=== PATIENT | female | born 1985 | race Caucasian/White ===

== ENCOUNTER 2017-09-23 12:01 | Outpatient (CLI) | payer BC ==
[~2017-09-23] VITALS: Ht 160 cm; Wt 107.7 kg
[2017-09-23 13:48] LABS: MICROSCOPIC NOT IND
== END 2017-09-23 14:54 | disposition home or self-care (01) ==
LOC: LDOP 12:01
PROVIDERS: ATTEND Obstetrics & Gynecology Maternal & Fetal Medicine
DX: O26.893 Other specified pregnancy related conditions, third trimester (principal); R51 Headache; Z3A.36 36 weeks gestation of pregnancy
CPT/HCPCS: 59025; 81003; 87086; 99201; G0463

== ENCOUNTER 2017-10-02 13:57 | Inpatient (IN) | payer BC ==
[~2017-10-02] VITALS: Ht 160 cm; Wt 110.9 kg
[2017-10-02 14:23] VITALS: BP 127/67
[2017-10-02] MEDS ORDERED: CALC-192 PO (14:58)
[2017-10-02] MEDS ORDERED: CALC200T3 PO (14:58)
[2017-10-02] MEDS ORDERED: PREN1TAB60 PO (14:58)
[2017-10-02 15:14] LABS: BASOPHILS # (AUTO) 0.03 x10^3/uL (0-0.1); BASOPHILS % (AUTO) 1 % (0-1); EOSINOPHILS # (AUTO) 0.07 x10^3/uL (0-0.4); EOSINOPHILS % (AUTO) 1 % (1-7); LYMPHOCYTES # (AUTO) 1.62 x10^3/uL (1-3.4); LYMPHOCYTES % (AUTO) 22 % (22-44); MD NO; MEAN CORPUSCULAR HGB CONC 33.6 g/dL (32.4-35.8); MEAN CORPUSCULAR VOLUME 83.4 fL (80-100); MEAN PLATELET VOLUME 9.3 fL (7.4-10.4); MONOCYTES # (AUTO) 0.58 x10^3/uL (0.2-0.8); MONOCYTES % (AUTO) 8 % (2-9); NEUTROPHILS # (AUTO) 5.09 x10^3/uL (1.8-6.8); NEUTROPHILS % (AUTO) 69 % (42-75); PLATELET COUNT 213 x10^3/uL (130-400); RED BLOOD COUNT 4.48 x10^6/uL (3.82-5.3); RED CELL DISTRIBUTION WIDTH 14.9 % (9.6-15.2)
[2017-10-02 15:16] LABS: MICROSCOPIC INDICATED
[2017-10-02 15:22] LABS: ALANINE AMINOTRANSFERASE 14 U/L (12-78); ALBUMIN 2.4 g/dL (3.4-5.0); ANION GAP 7 mmol/L (5-15); CALCIUM 8.8 mg/dL (8.5-10.1); CHLORIDE 108 mmol/L (98-107); CREATININE 0.55 mg/dL (0.55-1.02)
[2017-10-02 15:24] LABS: ALKALINE PHOSPHATASE 203 U/L (45-117); BILIRUBIN,TOTAL 0.3 mg/dL (0.2-1.0); TOTAL PROTEIN 6.5 g/dL (6.4-8.2)
[2017-10-02] MEDS ORDERED: OXYcodone/APAP 5/325MG TABLET PO ONE (16:30)
[2017-10-02] MEDS ORDERED: OXYcodone/APAP 5/325MG TABLET ONE (16:41)
[2017-10-02] MEDS ORDERED: D5%-LACTATED RINGERS 1,000 ML IV SCH (18:03)
[2017-10-02] MEDS ORDERED: OXYTOCIN 30U/ 0.9% NaCL 500ML 500 ML IV ONE (18:03)
[2017-10-02] MEDS ORDERED: OXYTOCIN 30U/ 0.9% NaCL 500ML 500 ML IV PRN (18:03)
[2017-10-02] MEDS ORDERED: ONDANSETRON 2MG/ML, 2ML IVPush PRN (18:30)
[2017-10-02] MEDS ORDERED: FENTANYL PF 100 MCG/2ML IVPush PRN (18:30)
[2017-10-02] MEDS ORDERED: MISOPROSTOL 25 MCG TABLET VG PRN (18:30)
[2017-10-02] MEDS ORDERED: FENTANYL PF 100 MCG/2ML IV PRN (18:30)
[2017-10-02] MEDS ORDERED: CALCIUM CARBONATE 500 MG TAB.CHEW PO PRN (18:30)
[2017-10-02 18:31] VITALS: BP 127/64
[2017-10-02] MEDS ORDERED: NEWBORN KIT ONE (19:21)
[2017-10-02] MEDS ORDERED: MISOPROSTOL 25 MCG TABLET ONE (19:50)
[2017-10-03 00:51] VITALS: BP 128/82
[2017-10-03] MEDS: LACTATED RINGERS 1,000 ML IV SCH ×2 (02:02→08:47)
[2017-10-03] MEDS ORDERED: LIDOCAINE/PF 1%, 30ML ONE (02:15)
[2017-10-03] MEDS ORDERED: MISOPROSTOL 200 MCG TABLET ONE (02:15)
[2017-10-03] MEDS ORDERED: OXYTOCIN 30U/ 0.9% NaCL 500ML 500 ML ONE ×2 (02:15→12:59)
[2017-10-03] MEDS ORDERED: LACTATED RINGERS 1,000 ML IV SCH ×2 (03:49→09:45)
[2017-10-03] MEDS ORDERED: FENTANYL/BUPIV./NS/PF 250 ML EPIDCONT SCH ×2 (03:49→09:45)
[2017-10-03] MEDS ORDERED: LACTATED RINGERS 1,000 ML IVBOLUS PRN ×2 (04:00→10:00)
[2017-10-03] MEDS ORDERED: BUPIVACAINE 0.25% ONE (07:19)
[2017-10-03] MEDS ORDERED: LACTATED RINGERS 1,000 ML INTUTE ONE (08:30)
[2017-10-03] MEDS ORDERED: TERBUTALINE 1 MG/ML, 1ML ONE (08:39)
[2017-10-03] MEDS ORDERED: TERBUTALINE 1 MG/ML, 1ML IVPush PRN (09:00)
[2017-10-03] MEDS ORDERED: EPHEDRINE 50 MG/ML, 1ML IVPush PRN (10:00)
[2017-10-03] MEDS ORDERED: OXYcodone IR 5MG TABLET PO PRN (11:00)
[2017-10-03] MEDS ORDERED: ONDANSETRON 2MG/ML, 2ML IV PRN (11:00)
[2017-10-03] MEDS: PRENATAL VIT/IRON/FA 1 EACH TABLET PO SCH (11:00)
[2017-10-03] MEDS ORDERED: MISOPROSTOL 200 MCG TABLET PR PRN (11:00)
[2017-10-03] MEDS: OXYTOCIN 30U/ 0.9% NaCL 500ML 500 ML IV SCH ×2 (13:01→20:56)
[2017-10-03 14:22] VITALS: BP 118/74
[2017-10-03 16:49] LABS: MEAN CORPUSCULAR HEMOGLOBIN 27.8 pg (27.0-34.8); MEAN CORPUSCULAR HGB CONC 32.8 g/dL (32.4-35.8); MEAN CORPUSCULAR VOLUME 84.5 fL (80-100); MEAN PLATELET VOLUME 9.3 fL (7.4-10.4); PLATELET COUNT 186 x10^3/uL (130-400); RED BLOOD COUNT 4.24 x10^6/uL (3.82-5.3); RED CELL DISTRIBUTION WIDTH 14.5 % (9.6-15.2)
[2017-10-03 17:24] LABS: MD SCAN
[2017-10-03 17:25] LABS: BASOPHILS # (AUTO) 0.08 x10^3/uL (0-0.1); BASOPHILS % (AUTO) 1 % (0-1); EOSINOPHILS # (AUTO) 0.02 x10^3/uL (0-0.4); EOSINOPHILS % (AUTO) 0 % (1-7); LYMPHOCYTES # (AUTO) 1.86 x10^3/uL (1-3.4); LYMPHOCYTES % (AUTO) 14 % (22-44); MONOCYTES # (AUTO) 0.89 x10^3/uL (0.2-0.8); MONOCYTES % (AUTO) 7 % (2-9); NEUTROPHILS # (AUTO) 10.32 x10^3/uL (1.8-6.8); NEUTROPHILS % (AUTO) 78 % (42-75)
[2017-10-03 21:00] VITALS: BP 125/76
[2017-10-04 01:00] VITALS: BP 121/83
[2017-10-04] MEDS: OXYcodone/APAP 5/325MG TABLET PO PRN ×4 (04:06→23:16)
[2017-10-04 04:54] VITALS: BP 120/79
[2017-10-04 07:20] VITALS: BP 119/82
[2017-10-04] MEDS: IBUPROFEN 600 MG TABLET PO PRN ×2 (09:09→17:56)
[2017-10-04] MEDS: PRENATAL VIT/IRON/FA 1 EACH TABLET PO SCH (09:09)
[2017-10-04] MEDS: DOCUSATE 100 MG CAPSULE PO PRN ×2 (09:09→23:16)
[2017-10-04] MEDS ORDERED: DIPH,PERTUSS(ACELL),TET VAC/PF NC IM-VACC ONE ×2 (17:51→17:52)
[2017-10-04 20:55] VITALS: BP 124/78
[2017-10-05] MEDS: IBUPROFEN 600 MG TABLET PO PRN ×3 (04:07→15:33)
[2017-10-05] MEDS: OXYcodone/APAP 5/325MG TABLET PO PRN ×3 (04:07→15:33)
[2017-10-05] MEDS: PRENATAL VIT/IRON/FA 1 EACH TABLET PO SCH (09:30)
[2017-10-05] MEDS: DOCUSATE 100 MG CAPSULE PO PRN (09:30)
[2017-10-05 09:45] VITALS: BP 137/84
[2017-10-05] MEDS ORDERED: OXYC-302 PO (13:32)
[2017-10-05] MEDS ORDERED: IBUP-1222 PO (13:32)
[2017-10-05] MEDS ORDERED: DOCU-131 PO (13:33)
[2017-10-05 19:18] VITALS: BP 117/80
== END 2017-10-05 18:36 | disposition home or self-care (01) | DRG 775 ==
LOC: LDOP 13:57 → OBSVTOIN 16:21 → LDIP 16:21 → 2NW 10-03 13:55
PROVIDERS: ADMIT Obstetrics & Gynecology Maternal & Fetal Medicine; ATTEND Obstetrics & Gynecology Maternal & Fetal Medicine
PROC: 10E0XZZ Delivery of Products of Conception, External Approach (ICD-10-PCS; principal; 2017-10-03)
PROC: 3E0R3BZ Introduction of Anesthetic Agent into Spinal Canal, Percutaneous Approach (ICD-10-PCS; 2017-10-03)
PROC: 00HU33Z Insertion of Infusion Device into Spinal Canal, Percutaneous Approach (ICD-10-PCS; 2017-10-03)
PROC: 10907ZC Drainage of Amniotic Fluid, Therapeutic from Products of Conception, Via Natural or Artificial Opening (ICD-10-PCS; 2017-10-03)
DX: O14.04 Mild to moderate pre-eclampsia, complicating childbirth (principal); O66.0 Obstructed labor due to shoulder dystocia; O71.7 Obstetric hematoma of pelvis; O76 Abnormality in fetal heart rate and rhythm complicating labor and delivery; Z3A.38 38 weeks gestation of pregnancy; O69.1XX0 Labor and delivery complicated by cord around neck, with compression, not applicable or unspecified; Z37.0 Single live birth
CPT/HCPCS: 36415; 76819; 80053; 81001; 82570; 82803; 83615; 84156; 84550; 85025; 86850; 86900; 87086; J3490; J2590; J3010; J3105; J7120

== ENCOUNTER 2017-11-26 23:13 | Emergency (ER) | payer BC ==
[~2017-11-26] VITALS: Ht 157.5 cm; Wt 100.7 kg
[~2017-11-26 23:13] MED LIST: CALC-192 PO; CALC200T3 PO; DOCU-131 PO; IBUP-1222 PO; OXYC-302 PO; PREN1TAB60 PO
[2017-11-26] MEDS ORDERED: MAALOX/HYOSCYAMINE/LIDOCAINE 45 ML BTL ONE (23:52)
[2017-11-26 23:58] LABS: BASOPHILS # (AUTO) 0.03 x10^3/uL (0-0.1); BASOPHILS % (AUTO) 0 % (0-1); EOSINOPHILS # (AUTO) 0.16 x10^3/uL (0-0.4); EOSINOPHILS % (AUTO) 2 % (1-7); LYMPHOCYTES # (AUTO) 3.12 x10^3/uL (1-3.4); LYMPHOCYTES % (AUTO) 35 % (22-44); MD NO; MEAN CORPUSCULAR HEMOGLOBIN 27.4 pg (27.0-34.8); MEAN CORPUSCULAR HGB CONC 32.8 g/dL (32.4-35.8); MEAN CORPUSCULAR VOLUME 83.7 fL (80-100); MEAN PLATELET VOLUME 8.6 fL (7.4-10.4); MONOCYTES # (AUTO) 0.59 x10^3/uL (0.2-0.8); MONOCYTES % (AUTO) 7 % (2-9); NEUTROPHILS # (AUTO) 4.97 x10^3/uL (1.8-6.8); NEUTROPHILS % (AUTO) 56 % (42-75); PLATELET COUNT 254 x10^3/uL (130-400); RED BLOOD COUNT 4.57 x10^6/uL (3.82-5.3); RED CELL DISTRIBUTION WIDTH 15.9 % (9.6-15.2)
[2017-11-27] MEDS ORDERED: MAALOX/HYOSCYAMINE/LIDOCAINE 45 ML BTL PO ONE
[2017-11-27 00:12] LABS: ALANINE AMINOTRANSFERASE 29 U/L (12-78); ALBUMIN 3.6 g/dL (3.4-5.0); ANION GAP 9 mmol/L (5-15); CALCIUM 8.8 mg/dL (8.5-10.1); CHLORIDE 108 mmol/L (98-107); CREATININE 0.73 mg/dL (0.55-1.02)
[2017-11-27 00:13] LABS: CULTURE INDICATED? YES; MICROSCOPIC INDICATED
[2017-11-27 00:16] LABS: ALKALINE PHOSPHATASE 120 U/L (45-117); BILIRUBIN,TOTAL 0.2 mg/dL (0.2-1.0); TOTAL PROTEIN 7.3 g/dL (6.4-8.2)
[2017-11-27 04:07] VITALS: BP 110/72
== END 2017-11-27 04:09 | disposition home or self-care (01) ==
LOC: ED 11-27 01:29
DX: K80.20 Calculus of gallbladder without cholecystitis without obstruction (principal)
CPT/HCPCS: 36415; 76700; 80053; 81001; 83690; 84703; 85025; 87086; 99285

== ENCOUNTER → 2018-01-01 | Outpatient (CLI) | payer BC ==
[~2018-01-01] MED LIST changes: +AMOX1TAB12 PO
[2018-01-01 11:52] LABS: BASOPHILS # (AUTO) 0.03 x10^3/uL (0-0.1); BASOPHILS % (AUTO) 0 % (0-1); EOSINOPHILS # (AUTO) 0.16 x10^3/uL (0-0.4); EOSINOPHILS % (AUTO) 2 % (1-7); LYMPHOCYTES # (AUTO) 2.59 x10^3/uL (1-3.4); LYMPHOCYTES % (AUTO) 33 % (22-44); MD NO; MEAN CORPUSCULAR HEMOGLOBIN 27.8 pg (27.0-34.8); MEAN CORPUSCULAR VOLUME 84.5 fL (80-100); MEAN PLATELET VOLUME 9.1 fL (7.4-10.4); MONOCYTES # (AUTO) 0.53 x10^3/uL (0.2-0.8); MONOCYTES % (AUTO) 7 % (2-9); NEUTROPHILS # (AUTO) 4.66 x10^3/uL (1.8-6.8); NEUTROPHILS % (AUTO) 58 % (42-75); PLATELET COUNT 246 x10^3/uL (130-400); RED BLOOD COUNT 4.58 x10^6/uL (3.82-5.3); RED CELL DISTRIBUTION WIDTH 15.4 % (9.6-15.2)
[2018-01-01 11:59] LABS: CULTURE INDICATED? NO; MICROSCOPIC NOT IND
== END | disposition home or self-care (01) ==
LOC: STAR 10:50
PROVIDERS: ATTEND Colon & Rectal Surgery
DX: Z01.818 Encounter for other preprocedural examination (principal)
CPT/HCPCS: 36415; 81003; 84703; 85025

== ENCOUNTER 2018-01-08 06:32 | Day surgery (SDC) | payer BC ==
[2018-01-01 11:22] VITALS: BP 118/80
[~2018-01-08] VITALS: Ht 160 cm; Wt 95.6 kg
[2018-01-08] MEDS ORDERED: INDIGO CARMINE 0.8%, 5ML ONE (07:10)
[2018-01-08] MEDS ORDERED: BUPIVACAINE/PF 0.5% ONE (07:10)
[2018-01-08] MEDS ORDERED: EPINEPHRINE 1 MG/ML, 1ML ONE (07:10)
[2018-01-08] MEDS ORDERED: LACTATED RINGERS 1,000 ML IV SCH (07:21)
[2018-01-08] MEDS ORDERED: PROMETHAZINE 25 MG/ML, 1ML IV PRN (09:00)
[2018-01-08] MEDS ORDERED: METOCLOPRAMIDE 5 MG/ML, 2ML IV PRN (09:00)
[2018-01-08] MEDS ORDERED: hydrALAzine 20 MG/ML, 1ML IV PRN (09:00)
[2018-01-08] MEDS ORDERED: HYDROmorphone 1 MG/ML, 1ML IV PRN (09:00)
[2018-01-08] MEDS ORDERED: KETOROLAC 30 MG/1 ML IV PRN (09:00)
[2018-01-08] MEDS ORDERED: ALBUTEROL SULFATE 2.5 MG/3 ML NPPB PRN (09:00)
[2018-01-08] MEDS ORDERED: LABETALOL 5MG/ML, 20ML IV PRN (09:00)
[2018-01-08] MEDS ORDERED: ONDANSETRON 2MG/ML, 2ML IVPush PRN (09:00)
[2018-01-08] MEDS ORDERED: MEPERIDINE/PF 25MG/0.5ML IVPush PRN (09:00)
[2018-01-08] MEDS ORDERED: BUPIVACAINE/PF-EPI 0.5% 1:200K INFIL ONE (09:14)
[2018-01-08 09:15] LABS: HCG UR SG 1.014 (1.003-1.030)
[2018-01-08] MEDS ORDERED: FENTANYL PF 100 MCG/2ML ONE (09:54)
[2018-01-08] MEDS ORDERED: OXYcodone 5 MG/5 ML ORAL.SOL UDC ONE ×2 (09:54→10:19)
[2018-01-08] MEDS ORDERED: KETOROLAC 30 MG/1 ML ONE (09:54)
[2018-01-08] MEDS: FENTANYL PF 100 MCG/2ML IV PRN ×2 (09:59→10:20)
[2018-01-08] MEDS: OXYcodone 5 MG/5 ML ORAL.SOL UDC PO PRN ×2 (10:03→10:20)
[2018-01-08] MEDS ORDERED: NEOSTIGMINE 1 MG/ML, 10ML ONE (15:28)
[2018-01-08] MEDS ORDERED: SUCCINYLCHOLINE 20 MG/ML, 10ML ONE (15:28)
[2018-01-08] MEDS ORDERED: CEFAZOLIN 1,000 MG ONE (15:28)
[2018-01-08] MEDS ORDERED: PROPOFOL 10 MG/ML, 20ML ONE (15:28)
[2018-01-08] MEDS ORDERED: DEXAMETHASONE 4 MG/ML, 1ML ONE (15:28)
[2018-01-08] MEDS ORDERED: ROCURONIUM 10MG/ML,5ML ONE (15:28)
[2018-01-08] MEDS ORDERED: GLYCOPYRROLATE 0.2MG/1ML, 5ML ONE (15:28)
[2018-01-08] MEDS ORDERED: ONDANSETRON 2MG/ML, 2ML ONE (15:28)
== END 2018-01-08 14:15 | disposition home or self-care (01) ==
LOC: OUT 06:32
PROVIDERS: ATTEND Obstetrics & Gynecology Maternal & Fetal Medicine
DX: K80.10 Calculus of gallbladder with chronic cholecystitis without obstruction (principal); Z30.2 Encounter for sterilization
CPT/HCPCS: 47562; 58661; 81025; 88302; 88304; J0171; J0330; J0690; J1100; J1885; J2250; J2405; J2704; J2710; J3010; J3490; J7120

== ENCOUNTER 2020-11-07 11:24 | Emergency (ER) | payer BC ==
[~2020-11-07] VITALS: Ht 160 cm; Wt 106.2 kg
[~2020-11-07 11:24] MED LIST changes: -OXYC-302 PO; +OXYC1TAB12 PO
[2020-11-07 12:57] LABS: BASOPHILS % (AUTO) 1 % (0-1); EOSINOPHILS % (AUTO) 2 % (1-7); LYMPHOCYTES % (AUTO) 33 % (22-44); MEAN CORPUSCULAR HEMOGLOBIN 29.4 pg (27.0-34.8); MEAN CORPUSCULAR HGB CONC 33.3 g/dL (32.4-35.8); MEAN PLATELET VOLUME 8.7 fL (7.4-10.4); MONOCYTES % (AUTO) 7 % (2-9); NEUTROPHILS % (AUTO) 58 % (42-75); PLATELET COUNT 232 x10^3/uL (130-400); RED BLOOD COUNT 4.61 x10^6/uL (3.82-5.3); RED CELL DISTRIBUTION WIDTH 14.1 % (9.6-15.2)
[2020-11-07 13:10] LABS: ALANINE AMINOTRANSFERASE 30 U/L (12-78); ALBUMIN 3.7 g/dL (3.4-5.0); ANION GAP 4 mmol/L (5-15); CALCIUM 8.6 mg/dL (8.5-10.1); CHLORIDE 108 mmol/L (98-107); CREATININE 0.57 mg/dL (0.55-1.02)
[2020-11-07 13:15] LABS: ALKALINE PHOSPHATASE 84 U/L (45-117); BILIRUBIN,TOTAL 0.4 mg/dL (0.2-1.0); TOTAL PROTEIN 7.3 g/dL (6.4-8.2)
[2020-11-07 16:39] VITALS: BP 118/76
[2020-11-07 17:06] LABS: MICROSCOPIC AUTO
[2020-11-07] MEDS ORDERED: ACETAMINOPHEN 500 MG TABLET ONE (17:25)
[2020-11-07] MEDS ORDERED: ACETAMINOPHEN 500 MG TABLET PO ONE (17:30)
== END 2020-11-07 18:10 | disposition home or self-care (01) ==
LOC: ED 11:44
DX: R10.31 Right lower quadrant pain (principal); R42 Dizziness and giddiness; Z90.49 Acquired absence of other specified parts of digestive tract
CPT/HCPCS: 36415; 80053; 81001; 84703; 85025; 87086; 99283